=== PATIENT | male | born 1980 | race Caucasian/White ===

== ENCOUNTER 2021-02-26 06:44 | Outpatient (CLI) | payer OTHER, SELFPAY ==
--- NOTE | ~2021-02-26 | MR_ITS ---
EXAMINATION: MR elbow RT wo con DATE: 02/26/2021 07:53 INDICATION: Right elbow injury. TECHNIQUE: Magnetic resonance imaging (MRI) of the right elbow was performed without intravenous cont rast. Sequences included coronal, axial, and sagittal PD-weighted FS FSE and coronal, axial, and sagi ttal PD-weighted FSE. COMPARISON: None FINDINGS: Osseous/other: Bone alignment is normal. No fracture. There are areas of full-thickness cartilage loss of capitellum and radial head. There is extensive partial-thickness cartilage loss of trochlea and olecranon. Ther e is a small area of full-thickness cartilage loss of the olecranon. There is partial-thickness carti cory loss of the proximal radioulnar joint. Tendons: There is mild biceps and brachialis tendinopathy. The common flexor and common extensor tendons are n ormal. Ligaments: Radial collateral ligament and lateral ulnar collateral ligament are intact. Ulnar collateral ligamen t is intact. Cubital tunnel: The ulnar nerve is normal. Fluid: There is a small knee joint effusion. There is an 11 mm loose body in the elbow joint anteriorly. IMPRESSION: 1. Severe elbow joint osteoarthritis. 2. Small elbow joint effusion with loose body. Reviewed, dictated and finalized at location A.
== END 2021-02-26 06:45 | disposition home or self-care (01) ==
LOC: ANHIMG 06:47
PROVIDERS: PCP Emergency Medicine; Visit Provider Emergency Medicine
DX: M19.021 Primary osteoarthritis, right elbow (principal); M24.021 Loose body in right elbow; M25.421 Effusion, right elbow; S59.901A Unspecified injury of right elbow, initial encounter
CPT/HCPCS: 73221

== ENCOUNTER 2021-03-19 09:55 | Outpatient (CLI) | payer OTHER, SELFPAY ==
--- NOTE | ~2021-03-19 | XR_ITS ---
EXAMINATION: XR lumbar spine 2-3V DATE: 03/19/2021 10:16 INDICATION: Low back pain. TECHNIQUE: 3 views of lumbar spine were obtained. COMPARISON: None. FINDINGS: There is 6 degrees levocurvature of lumbar spine. There is a compression fracture of L2 wit h 2/5 loss of height. There are changes of anterior fusion procedure at L5-S1 with interbody devices and anterior plate and screws. There is mildly decreased disc height at L1-L2. There is multilevel mi ld facet joint osteoarthritis. There is severe facet joint osteoarthritis at L5-S1. IMPRESSION: 1. Compression fracture of L2, most likely chronic. 2. Mild lumbar spondylosis. 3. Anterior fusion procedure at L5-S1. Reviewed, dictated and finalized at location A.
== END 2021-03-19 09:56 | disposition home or self-care (01) ==
LOC: ANHIMG 09:58
PROVIDERS: PCP Emergency Medicine; Visit Provider Emergency Medicine
DX: Z98.1 Arthrodesis status (principal); S32.029A Unspecified fracture of second lumbar vertebra, initial encounter for closed fracture; M47.816 Spondylosis without myelopathy or radiculopathy, lumbar region
CPT/HCPCS: 72100